=== PATIENT | female | born 1950 | race Caucasian/White ===

== ENCOUNTER 2017-12-17 20:12 | Emergency (ER) | payer OTHER ==
[~2017-12-17] VITALS: Ht 162.6 cm; Wt 76.2 kg
--- NOTE | 2017-12-17 20:45 | NUR ---
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
--- NOTE | 2017-12-17 21:15 | NUR ---
MELODY APPLIED PER MD REQUEST
[2017-12-17] MEDS ORDERED: HYDROCODONE/APAP 5/325MG 1 EACH TABLET PO ONE (22:00)
[2017-12-17] MEDS ORDERED: HYDROCODONE/APAP 5/325MG 1 EACH TABLET ONE (22:20)
--- NOTE | 2017-12-17 22:22 | NUR ---
CALLED PATIENTS DAUGHTER DANIELA @ [phone], SHE WOULD BE ABLE TO GEOLOGY FACULTY MEMBER HER MOTHER AROUND [phone].
--- NOTE | 2017-12-17 22:28 | NUR ---
C-COLAR REMOVED PER MD REQUEST AND PT MEDICATED FOR PAIN PER MD REQUEST
--- NOTE | 2017-12-18 01:30 | NUR ---
PT DAUGHTER WAS HERE TO SEASONAL CLERK PATIENT, PT WALKED OUT WITH DAUGHTER WITH A ATEADY GAIT, PT GIVEN ACI AND TOLD TO NOT DRIVE, PT VERBALIZED UNDERSTANDING
[2017-12-18 01:33] VITALS: BP 138/89
== END 2017-12-18 01:34 | disposition home or self-care (01) ==
LOC: ER 20:13
DX: S00.03XA Contusion of scalp, initial encounter (principal); K21.9 Gastro-esophageal reflux disease without esophagitis; R29.6 Repeated falls; F10.10 Alcohol abuse, uncomplicated; W01.0XXA Fall on same level from slipping, tripping and stumbling without subsequent striking against object, initial encounter; Y93.89 Activity, other specified; Y92.002 Bathroom of unspecified non-institutional (private) residence as the place of occurrence of the external cause; Y99.8 Other external cause status
CPT/HCPCS: 70450-TC; 72125-TC; A4606; A6402; L0172; Z7610

== ENCOUNTER 2020-03-26 16:57 | Emergency (ER) | payer OTHER ==
[~2020-03-26] VITALS: Ht 170.2 cm; Wt 63.5 kg
[2020-03-26] MEDS ORDERED: LIDOCAINE 1%-EPI 1:100,000 20 ML VIAL ONE (17:34)
--- NOTE | 2020-03-26 18:00 | NUR ---
patient came in to the er c/o facial lac s/p glf. On room air, breathing evenly and unlabored. connected to the monitor and pulse ox. kept comfortable, will continue to monitor accordingly.
--- NOTE | 2020-03-26 19:05 | NUR ---
REPORT REC'D FROM SYLVIA RUCKER FOR ANGELA.
--- NOTE | 2020-03-26 19:30 | NUR ---
C-COLLAR REMOVED PER DR REEDER.
--- NOTE | 2020-03-26 19:39 | NUR ---
CALLING RADIOLOGY RE: HAND XRAY. CLAUDIA IS ON HIS WAY.
--- NOTE | 2020-03-26 20:25 | NUR ---
Patient discharged to home in stable condition. Written and verbal after care instructions given. Patient verbalizes understanding of instruction. PT AMBULATED OUT WITH A STEADY GAIT. VSS
[2020-03-26 20:26] VITALS: BP 128/58
== END 2020-03-26 20:26 | disposition home or self-care (01) ==
LOC: ER 17:13
DX: S01.81XA Laceration without foreign body of other part of head, initial encounter (principal); S60.012A Contusion of left thumb without damage to nail, initial encounter; F32.9 Major depressive disorder, single episode, unspecified; F41.9 Anxiety disorder, unspecified; Z98.890 Other specified postprocedural states; W18.39XA Other fall on same level, initial encounter; Y93.89 Activity, other specified; Y92.89 Other specified places as the place of occurrence of the external cause; Y99.8 Other external cause status
CPT/HCPCS: 12013; 70450; 72125; 73130; 99285; A6403 ×2; J3490

== ENCOUNTER 2023-03-13 16:21 | Inpatient (IN) | payer OTHER ==
[~2023-03-13] VITALS: Ht 162.6 cm; Wt 68.9 kg
[~2023-03-13 16:21] MED LIST: CEPH250C PO; FLUO10CA26 PO; HYDR-3980 PO; IBUP-1957 PO; OXYC-128 PO
--- NOTE | 2023-03-13 16:25 | NUR ---
BIB FAMILY FROM HOME FOR NOTED R SIDED WEAKNESS AND SLURRED SPEECH LKW 2100.
--- NOTE | 2023-03-13 16:26 | NUR ---
CALLED [facility]
--- NOTE | 2023-03-13 16:30 | NUR ---
PT TAKEN TO CT VIA ONESIMO
--- NOTE | 2023-03-13 16:31 | NUR ---
PT TO CT VIA ACLS PROTOCALS.
[2023-03-13] MEDS ORDERED: IOHEXOL-350 100 ML VIAL IV ONE (16:32)
[2023-03-13] MEDS ORDERED: CT SWABBABLE VALVE TRANS SET 1 EA INFUS.SET MC ONE (16:32)
[2023-03-13] MEDS ORDERED: IV NS 0.9% 250 ML IV ONE (16:32)
--- NOTE | 2023-03-13 16:32 | NUR ---
CALLED [facility] [phone] KRISTIAN SIMPSON.
--- NOTE | 2023-03-13 16:32 | NUR ---
FAIL SWALLOW EVAL. COUGHT AND SPIT WATER AFTER DRINKING
--- NOTE | 2023-03-13 16:35 | NUR ---
DAUGHTER DANIELA LEFT CONTACT # [phone], DR SAHA PMD CONTACT # [phone]
[2023-03-13 16:37] LABS: BASOPHILS # (AUTO) 0.1 K/uL (0.0-0.2); BASOPHILS % (AUTO) 0.5 % (0.0-2.0); EOSINOPHILS % (AUTO) 5.8 % (0.0-6.0); HEMATOCRIT 38 % (33-45); HEMOGLOBIN 12.6 g/dL (11.5-14.8); LYMPHOCYTES # (AUTO) 2.2 K/uL (0.8-4.8); LYMPHOCYTES % (AUTO) 22.3 % (20.0-44.0); MEAN CORPUSCULAR HGB CONC 33 g/dl (31.0-36.0); MEAN CORPUSCULAR VOLUME 98 fL (82-100); MONOCYTES # (AUTO) 0.6 K/uL (0.1-1.30); MONOCYTES % (AUTO) 5.9 % (2.0-12.0); NEUTROPHILS # (AUTO) 6.5 K/uL (1.8-8.9); NEUTROPHILS % (AUTO) 65.5 % (43.0-81.0); PLATELET COUNT (AUTO) 328 K/uL (150-450); RED BLOOD CELL COUNT(AUTO) 3.91 MIL/uL (4.0-5.2); WHITE BLOOD COUNT (AUTO) 9.9 K/uL (4.3-11.0)
[2023-03-13 16:42] LABS: CALCIUM, SERUM 9.8 mg/dL (8.5-10.1); CARBON DIOXIDE 25 mmol/L (21-32); CHLORIDE 107 mmol/L (98-107); CREATININE 0.7 mg/dL (0.6-1.3); GLUCOSE 101 mg/dL (74-106); POTASSIUM 3.4 mmol/L (3.5-5.1); SODIUM SERUM 142 mmol/L (136-145); UREA NITROGEN, BLOOD 17 mg/dL (7-18)
--- NOTE | 2023-03-13 16:49 | NUR ---
DR. HARDY SPEAKING WITH DR. GUILLEN.
--- NOTE | 2023-03-13 17:03 | NUR ---
AWAITING FOR TELE NEURO. MONITOR AT BEDSIDE
--- NOTE | 2023-03-13 17:22 | NUR ---
FF. UP WITH [facility]. THEY SAID TEREZA VALENCIA WILL BE THE ONE TO EVALUATE THE PATIENT. TELE MONITOR STILL AT THE BEDSIDE WAITING FOR THE CALL.
--- NOTE | 2023-03-13 17:39 | NUR ---
CALLED [facility] [phone] ASKING MD TO BEAM AND DO EVAL.
--- NOTE | 2023-03-13 17:49 | NUR ---
TELE NEURO SPOKE AND EVALUATE THE PATIENT.
--- NOTE | 2023-03-13 17:54 | NUR ---
DR. ROCKWELL SPEAKING WITH DR. GUILLEN.
[2023-03-13] MEDS ORDERED: ASPIRIN 325 MG TABLET PO ONE (18:00)
[2023-03-13] MEDS ORDERED: LORAZEPAM INJ 2 MG/ML VIAL IM ONE (18:00)
--- NOTE | 2023-03-13 18:04 | NUR ---
URINE COLLECTED SENT TO LAB
[2023-03-13] MEDS ORDERED: ASPIRIN 300 MG/SUPP.RECT RC ONE ×2 (18:30→18:52)
--- NOTE | 2023-03-13 19:13 | NUR ---
DANIELA SANTILLAN " DAUGHTER " [phone]. FOR UPDATE
--- NOTE | 2023-03-13 19:16 | NUR ---
JERAD CM [phone].
--- NOTE | 2023-03-13 19:20 | NUR ---
VERBAL CLINICALS GIVEN TO [facility]
--- NOTE | 2023-03-13 19:30 | NUR ---
COVID SWAB COLLECTED, GIVEN TO ONCOLOGY COORDINATOR
--- NOTE | 2023-03-13 19:52 | NUR ---
MESSAGE FROM MOBILITY ARCHITECT: PATIENT TO BE TRANSFERRED TO [facility].
--- NOTE | 2023-03-13 22:00 | NUR ---
RECEIVED A CALL FROM CM. THEY ARE STILL TRYING TO LOOK FOR ACLS TRANSPORT FOR PT. THEY WILL CALL US BACK SOON THAT THEY CAN ARRANGE TRANSPORT FOR ETA.
--- NOTE | 2023-03-14 01:30 | NUR ---
RECEIVED A CALL FROM [facility]. THEY CANNOT FIND TRANSPO FOR PT. THEY DECIDED TO GIVE US AUTHORIZATION TO ADMIT PT AT [facility].
[2023-03-14] MEDS ORDERED: ESCI10TA PO (03:29)
[2023-03-14] MEDS ORDERED: TOPI25TA49 PO (03:29)
--- NOTE | 2023-03-14 03:48 | NUR ---
MRSA SWAB COLLECTED AND SENT TO LAB. PATIENT'S BELONGINGS LIST DONE.
--- NOTE | 2023-03-14 04:01 | NUR ---
REPORT GIVEN TO SYLVIA DE SOUZA
[2023-03-14 04:30] VITALS: BP 126/87
--- NOTE | 2023-03-14 04:30 | NUR ---
PLUMBING ASSEMBLER INSTALLERSENIOR TECHNICAL MANAGER NOTE PATIENT CAME TO THE FLOOR ON A GURNEY FROM ER. UPON ADMISSION, VITAL SIGNS WERE TAKEN THE FOLLOWING: BP IS 126/87; HR IS 65; RR IS 18; TEMP IS 97.7 ORALLY; AND O2 SAT IS 98% ON RA. PT IS ON RA, TOLERATED WELL; NO S/S OF DISTRESS. PT IS ALERT AND ORIENTED, AO X 3 BUT FORGETFUL. PT HAS IV ACCESS AT HER R AC, #20G, SL. FLUSHED WELL WITH 10 CC OF NS. IV SITE IS PATENT AND INTACT. PT IS ON EXTERNAL SILVERWARE BUFFING MACHINE OPERATOR, ON THE MONITOR, HER HEART RHYTHM IS SR WITH HR AT 60S. SWALLOW EVALUATION IS DONE. PT PASSED THE TEST. SHE IS ABLE TO EAT AND DRINK WITHOUT ASPIRATION. SAFETY MEASURES ARE IN PLACED: BED IN LOWEST AND LOCKED POSITION; SIDE RAILS UP X 2; BED ALARM IS SET; CALL LIGHT AND TABLE ARE WITHIN EASY REACH. WILL CONTINUE MONITORING THE PT AND PROVIDE THE CARE PT NEEDS.
--- NOTE | 2023-03-14 04:30 | NUR ---
TRANSFERRED TO ROOM VIA ACLS PROTOCOL
[2023-03-14] MEDS ORDERED: ACETAMINOPHEN 325 MG TABLET PO PRN (05:00)
[2023-03-14] MEDS ORDERED: ZOLPIDEM TARTRATE 5 MG TABLET PO PRN (05:00)
--- NOTE | 2023-03-14 05:00 | NUR ---
VICE PRESIDENT QUALITY NOTE PT ASKED ME TO CALL HER DAUGHTER, DANIELA. GET HER NUMBER FROM PT'S CHART, , THE PHONE CAN'T GO THROUGH. ASKED THE PT AND PT GAVE HER OWN CELLPHONE NUMBER: [phone] AND CALLED HER PHONE (PT STATED HER DAUGHTER TOOK HER PHONE HOME). NOBODY ANSWERS THE PHONE WELL. WILL ENDORSE NEXT SHIFT NURSE TO FOLLOW UP.
[2023-03-14 05:55] LABS: BASOPHILS # (AUTO) 0.1 K/uL (0.0-0.2); BASOPHILS % (AUTO) 0.6 % (0.0-2.0); EOSINOPHILS % (AUTO) 8.5 % (0.0-6.0); HEMATOCRIT 38 % (33-45); HEMOGLOBIN 12.2 g/dL (11.5-14.8); LYMPHOCYTES # (AUTO) 2.8 K/uL (0.8-4.8); MEAN CORPUSCULAR HGB CONC 32 g/dl (31.0-36.0); MEAN CORPUSCULAR VOLUME 99 fL (82-100); MONOCYTES # (AUTO) 0.7 K/uL (0.1-1.30); MONOCYTES % (AUTO) 7.4 % (2.0-12.0); NEUTROPHILS # (AUTO) 4.7 K/uL (1.8-8.9); NEUTROPHILS % (AUTO) 52.5 % (43.0-81.0); PLATELET COUNT (AUTO) 322 K/uL (150-450); RED BLOOD CELL COUNT(AUTO) 3.79 MIL/uL (4.0-5.2)
[2023-03-14 06:19] LABS: CALCIUM, SERUM 10.1 mg/dL (8.5-10.1); CREATININE 0.6 mg/dL (0.6-1.3); POTASSIUM 3.3 mmol/L (3.5-5.1)
[2023-03-14 06:22] LABS: THYROID STIMULATING HORMONE 1.326 uIU/mL (0.358-3.74)
[2023-03-14 07:00] VITALS: BP 144/93
[2023-03-14] MEDS ORDERED: POTASSIUM CHLORIDE 20 MEQ TAB.PRT.SR PO ONE (07:00)
--- NOTE | 2023-03-14 07:20 | NUR ---
MANAGER EMERGENCY DEPARTMENT CLOSING NOTE RECEIVED PATIENT IN BED, A/O X 3 FORGETFUL AT TIMES. PT HAS SLURRED SPEECH, ON RA, TOLERATED WELL, NO S/S OF DISTRESS OR SOB. PT HAS IV ACCESS AT HER RAC, #20G SL. PT IS ON EXTERNAL SALES ORDER COORDINATOR WITH READING OF SR WITH HR AT 60S. RIGHT SIDED WEAKNESS NOTED. SAFETY MEASURES ARE IN PLACE: BED IN LOWEST AND LOCKED POSITION; SIDE RAILS UP X 2; BED ALARM IS SET; CALL LIGHT AND TABLE ARE WITHIN EASY REACH. WILL CONTINUE TO MONITOR PATIENT THE ENTIRE SHIFT. Addendum: 03/14/23 at 0800 by ZOFIA LAKE RN MANAGER EMERGENCY DEPARTMENT OPENING NOTES
--- NOTE | 2023-03-14 07:34 | NUR ---
MARKETING PROJECT COORDINATOR CLOSING NOTE PATIENT IS RESTING IN BED. SHE IS ALERT AND ORIENTED, AO X 3 BUT FORGETFUL. PT IS SLURRED SPEECH UPON ADMISSION. PT IS ON RA, TOLERATED WELL. NO S/S OF DISTRESS OR SOB. PT HAS IV ACCESS AT HER R AC, #20G, SL. FLUSHED WELL WITH 10 CC OF NS. IV SITE IS PATENT AND INTACT. PT IS ON EXTERNAL CHILD GUIDANCE COUNSELOR, ON THE MONITOR, HER HEART RHYTHM IS SR WITH HR AT 60S. SWALLOW EVALUATION IS DONE. PT PASSED THE TEST. SHE IS ABLE TO EAT AND DRINK WITHOUT ASPIRATION. SAFETY MEASURES ARE IN PLACED: BED IN LOWEST AND LOCKED POSITION; SIDE RAILS UP X 2; BED ALARM IS SET; CALL LIGHT AND TABLE ARE WITHIN EASY REACH. ENDORSED NEXT SHIFT NURSE FOR CONTINUING PT CARE.
[2023-03-14 08:00] VITALS: BP 144/93
[2023-03-14] MEDS: CLOPIDOGREL BISULFATE 75 MG TABLET PO SCH (08:40)
[2023-03-14] MEDS: TOPIRAMATE 25 MG TABLET PO SCH (08:40)
[2023-03-14] MEDS: ASPIRIN 81 MG TAB.CHEW PO SCH (08:40)
[2023-03-14] MEDS: ESCITALOPRAM OXALATE (10 MG) 10 MG TABLET PO SCH (08:40)
[2023-03-14 12:00] VITALS: BP 131/83
[2023-03-14] MEDS ORDERED: GADOTERATE MEGLUMINE 10 MMOL/20 ML VIAL IV ONE (12:13)
--- NOTE | 2023-03-14 13:00 | NUR ---
RN NOTE DANIELA (DAUGHTER) CALLED. INFORMED OF PROCEDURES DONE. DAUGHTER'S NUMBER ([phone]) ATTACHED TO CHART. WILL CONTINUE TO MONITOR PATIENT
--- NOTE | 2023-03-14 15:17 | NUR ---
RN NOTE MRI CALLED FOR RESULT OF PATIENT. RELAYED TO MD AND LABORER STARCH FACTORY.WILL CONTINUE TO MONITOR THE PATIENT
[2023-03-14 16:00] VITALS: BP 131/79
--- NOTE | 2023-03-14 18:49 | NUR ---
TRANSFER IRON OPERATOR CLOSING NOTE PATIENT IN BED, A/O X 3, FORGETFUL AT TIMES. ON RA, TOLERATED WELL, NO S/S OF DISTRESS OR SOB. PT HAS IV ACCESS AT HER RFA #22G SL, INTACT, PATENT AND FLUSHING WELL. PT IS ON EXTERNAL COMMUNICATION TECHNICIAN WITH READING OF SR WITH HR AT 62. RIGHT SIDED WEAKNESS OF THE ARM NOTED. FAMILY INFORMED AND UPDATED OF PATIENT'S CONDITION. ALL NEEDS ATTENDED AND ANTICIPATED. SAFETY MEASURES ARE IN PLACE: BED IN LOWEST AND LOCKED POSITION; SIDE RAILS UP X 2; BED ALARM IS SET; CALL LIGHT AND TABLE ARE WITHIN EASY REACH. WILL ENDORSE TO HYDROMETEOROLOGICAL TECHNICIAN NURSE.
--- NOTE | 2023-03-14 19:30 | NUR ---
ANGULAR JS DEVELOPER OPENING NOTE RECEIVED PATIENT FROM AM NURSE; PATIENT RESTING IN BED, A/O X 3, WITH PERIODS OF FORGETFULNESS; ABLE TO MAKE NEEDS KNOWN; NOTED WITH RIGHT ARM WEAKNESS; STABLE ON ROOM AIR, BREATHING EVENLY AND NO S/S OF DISTRESS NOTED; WITH IV ACCESS AT LFA G# 22 SALINE LOCK; HOOKED ON TELE MONITORING; ENCOURAGED VERBALIZATION OF NEEDS; SAFETY MEASURES IMPLEMENTED, BED LOCKED IN LOWEST POSITION, SIDE RAILS UP X 2, CALL LIGHT AND TABLE WITHIN REACH; WILL CONTINUE TO MONITOR THROUGHOUT SHIFT
[2023-03-14 20:00] VITALS: BP 142/68
[2023-03-14] MEDS: ATORVASTATIN 40 MG TABLET PO SCH (21:27)
[2023-03-15] VITALS: BP_SYST 133; BP_SYST 142; BP_DIAS 68; BP_DIAS 91
[2023-03-15 04:00] VITALS: BP 125/55
--- NOTE | 2023-03-15 06:48 | NUR ---
TALCER CLOSING NOTE PATIENT ASLEEP IN BED, A/O X 3, WITH PERIODS OF FORGETFULNESS; ABLE TO MAKE NEEDS KNOWN; NOTED WITH RIGHT ARM WEAKNESS; STABLE ON ROOM AIR, BREATHING EVENLY AND NO S/S OF DISTRESS NOTED; WITH IV ACCESS AT LFA G# 22 SALINE LOCK, INTACT AND PATENT; HOOKED ON TELE MONITORING CURRENTLY READING SINUS RHYTHM 70S BPM; WITH PUREWICK IN PLACE; ADMINISTERED MEDICATIONS PRESCRIBED; PATIENT'S NEEDS ATTENDED; KEPT CLEAN AND DRY; SAFETY MEASURES IMPLEMENTED, BED LOCKED IN LOWEST POSITION, SIDE RAILS UP X 2, CALL LIGHT AND TABLE WITHIN REACH; WILL ENDORSE TO AM NURSE FOR ANGELA.
--- NOTE | 2023-03-15 07:25 | NUR ---
HEALTH SERVICES RN OPENING NOTE RECEIVED PATIENT IN BED, AA/O X 3, WITH PERIODS OF FORGETFULNESS; ABLE TO MAKE NEEDS KNOWN; NOTED WITH RIGHT ARM WEAKNESS; STABLE ON ROOM AIR, BREATHING EVENLY AND NO S/S OF DISTRESS NOTED, SATURATING AT 98%, WITH IV ACCESS AT LFA G# 22 SALINE LOCK, INTACT AND PATENT AND FLUSHING WELL, ON BROWNING PROCESSOR WITH A CURRENT READING OF SR WITH A HR OF 63 BPM, ENCOURAGED VERBALIZATION OF NEEDS, SAFETY MEASURES IMPLEMENTED, BED LOCKED IN LOWEST POSITION, SIDE RAILS UP X 2, CALL LIGHT AND TABLE WITHIN EASY REACH, WILL CONTINUE TO MONITOR THROUGHOUT SHIFT
[2023-03-15 08:00] VITALS: BP 109/86
[2023-03-15] MEDS: ESCITALOPRAM OXALATE (10 MG) 10 MG TABLET PO SCH (08:30)
[2023-03-15] MEDS: TOPIRAMATE 25 MG TABLET PO SCH (08:30)
[2023-03-15] MEDS: ASPIRIN 81 MG TAB.CHEW PO SCH (08:30)
[2023-03-15] MEDS: CLOPIDOGREL BISULFATE 75 MG TABLET PO SCH (08:30)
[2023-03-15 09:04] LABS: CREATININE 0.6 mg/dL (0.6-1.3); POTASSIUM 3.7 mmol/L (3.5-5.1)
[2023-03-15] MEDS ORDERED: ATOR40TA PO (09:04)
[2023-03-15] MEDS ORDERED: ASPI-1169 PO (09:04)
[2023-03-15] MEDS ORDERED: CLOP75TA15 PO (09:04)
[2023-03-15 09:13] LABS: CALCIUM, SERUM 10.1 mg/dL (8.5-10.1)
[2023-03-15 10:17] LABS: BILIRUBIN,DIRECT 0.1 mg/dL (0.0-0.2); BILIRUBIN,TOTAL 0.5 mg/dL (0.2-1.0)
[2023-03-15 10:18] LABS: ALBUMIN 3.7 g/dL (3.4-5.0)
[2023-03-15 12:00] VITALS: BP 130/78
--- NOTE | 2023-03-15 12:27 | NUR ---
RN NOTE PATIENT HAS ACUTE MARKEDLY DISPLACED DISTAL CLAVICULAR FRACTURE. DR. MCCANN ORDERED AN ORTHO CONSULT.
[2023-03-15 16:00] VITALS: BP 111/79
--- NOTE | 2023-03-15 18:42 | NUR ---
ASSOCIATE PROFESSOR OF CHEMISTRY CLOSING NOTE RECEIVED PATIENT IN BED, AA/O X 3, WITH PERIODS OF FORGETFULNESS; ABLE TO MAKE NEEDS KNOWN; NOTED WITH RIGHT ARM WEAKNESS; STABLE ON ROOM AIR, BREATHING EVENLY AND NO S/S OF DISTRESS NOTED, SATURATING AT 98%, WITH IV ACCESS AT LFA G# 22 SALINE LOCK, INTACT AND PATENT AND FLUSHING WELL, ON DRUM HANDLER WITH A CURRENT READING OF SR WITH A HR OF 63 BPM, ENCOURAGED VERBALIZATION OF NEEDS, SAFETY MEASURES IN PLACE AND MAINTAINED AT ALL TIMES, BED LOCKED IN LOWEST POSITION, SIDE RAILS UP X 2, CALL LIGHT AND TABLE WITHIN EASY REACH, SCHEDULED MEDICATIONS ADMINISTERED, PATIENT WAS TURNED AND REPOSITIONED PER PROTOCOL, ALL NEEDS ATTENDED AND ANTICIPATED, WILL ENDORSE TO BANQUET SERVER ON CALL NURSE. Addendum: 03/15/23 at 1843 by ROCK WALKER BOATENG RN ASSOCIATE PROFESSOR OF CHEMISTRY CLOSING NOTE RECEIVED PATIENT IN BED, AA/O X 3, WITH PERIODS OF FORGETFULNESS; ABLE TO MAKE NEEDS KNOWN; NOTED WITH RIGHT ARM WEAKNESS; STABLE ON ROOM AIR, BREATHING EVENLY AND NO S/S OF DISTRESS NOTED, SATURATING AT 98%, WITH IV ACCESS AT LFA G# 22 SALINE LOCK, INTACT AND PATENT AND FLUSHING WELL, ON DRUM HANDLER WITH A CURRENT READING OF SR WITH A HR OF 93 BPM, ENCOURAGED VERBALIZATION OF NEEDS, SAFETY MEASURES IN PLACE AND MAINTAINED AT ALL TIMES, BED LOCKED IN LOWEST POSITION, SIDE RAILS UP X 2, CALL LIGHT AND TABLE WITHIN EASY REACH, SCHEDULED MEDICATIONS ADMINISTERED, PATIENT WAS TURNED AND REPOSITIONED PER PROTOCOL, ALL NEEDS ATTENDED AND ANTICIPATED, WILL ENDORSE TO BANQUET SERVER ON CALL NURSE.
--- NOTE | 2023-03-15 19:35 | NUR ---
TELERN SEEN ON THE WHEELCHAIR WHEELING HERSELF AROUND HALLWAYS ALERT ORIENTED X3. HFR, RIGHT SIDED WEAKNESS. SAFETY PRECAUTIONS EMPHASIZED, WELL UNDERSTOOD. NO NEEDS FOR NOW STATED CAN WHEEL HERSELF AROUND WITHOUT HELP. OFFERED ASSISTANCE STATED WILL CALL STAFF IF NEEDED. PENDING DISCHARGE, AWAITING FOR SNF PLACEMENT.
[2023-03-15 20:00] VITALS: BP 102/63
--- NOTE | 2023-03-15 20:11 | NUR ---
TELERN RECEIVED CALL FROM [facility], UPDATES REGARDING ORTHO CONSULTS. WILL CALL BACK ONCE PLACEMENT ARRANGED.
[2023-03-15] MEDS: ATORVASTATIN 40 MG TABLET PO SCH (21:36)
[2023-03-16] VITALS: BP 174/81
--- NOTE | 2023-03-16 00:45 | NUR ---
TELERN FOUND BY ANOTHER RN SITTING ON THE FLOOR ON LEFT SIDE FOOT BOARD OF THE BED. PATIENT STATED DID NOT HIT HER HEAD OR ANY PARTS OF HER BODY ON THE FLOOR. SHE STATED DECIDED TO SLIDE DOWN FROM WHEELCHAIR TO FLOOR THEN CRAWL GOING BACK TO BED. SUSTAINED MINOR WOUNDS OF HER LEFT FRANCIS. WAS ASSISTED BY RN AND REHABILITATION TECHNICIAN BACK TO BED. WOUNDS CLEANSED WITH NS PAT DRY AND MEPILEX APPLIED. PATIENT ADMITTED NOT CALLING STAFF FOR ANY ASSISTANCE GOING TO RESTROOM AND DECIDED TO GO BY HERSELF. PATIENT ON/OFF CONFUSION. STATED WILL CALL STAFF NEXT TIME SHE WILL NEED HELP. CALL LIGHT USE REVIEWED WITH PATIENT AND WELL UNDERSTOOD. SIDE RAILS UP X3, BED ALARM ON. REMINDED NOT TO PUT RAILS DOWN AND TOUCH BED ALARM. NEEDS CONSTANT MONITORING, WILL NEED TO BE MOVE CLOSER OF STATION . TO CONTINUE.
--- NOTE | 2023-03-16 03:01 | NUR ---
TELERN MOVED TO ROOM 311-1 WITH ALL PERSONAL BELONGINGS VIA BED. RE-ORIENTED TO ROOM FACILITIES.
[2023-03-16 04:00] VITALS: BP 145/92
--- NOTE | 2023-03-16 06:42 | NUR ---
TELERN HAS BEEN CALLING FOR ASSISTANCE TO BSC. FREQ VOIDING, SAFETY AWARENESS REMINDED TO PATIENT. CLOSELY WATCHED.
[2023-03-16 07:00] VITALS: BP 117/71
--- NOTE | 2023-03-16 07:18 | NUR ---
FURNACE LOADER OPENING NOTE RECEIVED PATIENT IN BED, AA/O X 3, WITH PERIODS OF FORGETFULNESS; ABLE TO MAKE NEEDS KNOWN; NOTED WITH RIGHT ARM WEAKNESS; STABLE ON ROOM AIR, BREATHING EVENLY AND NO S/S OF DISTRESS NOTED, SATURATING AT 98%, WITH IV ACCESS AT LFA G# 22 SALINE LOCK, INTACT AND PATENT AND FLUSHING WELL, ON INSOLE CHANNELER WITH A CURRENT READING OF SR WITH A HR OF 82 BPM, ENCOURAGED VERBALIZATION OF NEEDS, SAFETY MEASURES IMPLEMENTED, BED LOCKED IN LOWEST POSITION, SIDE RAILS UP X 2, CALL LIGHT AND TABLE WITHIN EASY REACH, WILL CONTINUE TO MONITOR THROUGHOUT SHIFT
--- NOTE | 2023-03-16 07:43 | NUR ---
TELERN SPOKE TO CÉSAR DAUGHTER OF PATIENT VIA PHONE. INFORMED ABOUT FALL INCIDENT.
[2023-03-16] MEDS: CLOPIDOGREL BISULFATE 75 MG TABLET PO SCH (08:26)
[2023-03-16] MEDS: ESCITALOPRAM OXALATE (10 MG) 10 MG TABLET PO SCH (08:26)
[2023-03-16] MEDS: ASPIRIN 81 MG TAB.CHEW PO SCH (08:26)
[2023-03-16] MEDS: TOPIRAMATE 25 MG TABLET PO SCH (08:26)
--- NOTE | 2023-03-16 08:46 | NUR ---
RN NOTES PT SEEN BY DR MCCANN AND RECEIVED VERBAL ORDER FOR STAT X-RAY OF PELVIS TO R/O FRACTURE.
--- NOTE | 2023-03-16 09:17 | NUR ---
WOUND CARE CONSULT: PT PRESENTS WITH ABRASIONS TO LEFT LOWER LEG, PRESENT ON ADMISSION. RECOMMENDATIONS MADE FOR SKIN PROTECTION AND WOUND CARE. DISCUSSED WITH NURSING STAFF. MD IN AGREEMENT WITH PLAN OF CARE.
[2023-03-16 12:00] VITALS: BP 129/86
--- NOTE | 2023-03-16 15:31 | NUR ---
GUEST RELATIONS EXECUTIVE NOTE PATIENT DISCHARGE IN STABLE MEDICAL CONDITION, A/OX1, V/S TAKEN, STABLE AND RECORDED, REMOVED IV ACCESS, NO BLEEDING NOTED, APPLIED DD, NAME ARM BAND REMOVED, EXTERNAL PSYCHOSOCIAL REHABILITATION COUNSELOR REMOVED AND RETURNED TO TELE DESK, SKIN ASSESSMENT DONE AND PICTURES TAKEN, ALL BELONGING CHECKED, HEALTH TEACHING AND DISCHARGE INSTRUCTION GIVEN AT THE SNF NURSE CHUCK, RN AT [facility] AND VERBALIZED UNDERSTANDING, INSTRUCTED RN AT THE FACILITY TO MAKE A APPOINTMENT WITH THE PCP IN 1 WEEK, DISCUSSED PRESCRIPTION WITH THE FACILITY NURSE, INSTRUCTED TO CALL 911 OR GO TO THE NEAREST ER FOR ANY EMERGENCY, PATIENT LEFT UNIT VIA GURNEY W/ NO DISTRESS, ACCOMPANIED BY 2 EMT AT 1500, AND CHARGE NURSE AWARE.
== END 2023-03-16 13:00 | DRG 66 ==
LOC: ER 16:22 → TELE 03-14 03:40
PROVIDERS: ADMIT Internal Medicine; ATTEND Internal Medicine
DX: I63.233 Cerebral infarction due to unspecified occlusion or stenosis of bilateral carotid arteries (principal); F32.9 Major depressive disorder, single episode, unspecified; R29.810 Facial weakness; I10 Essential (primary) hypertension; G89.29 Other chronic pain; G83.21 Monoplegia of upper limb affecting right dominant side; R47.81 Slurred speech; R29.705 NIHSS score 5; R47.1 Dysarthria and anarthria; Z20.822 Contact with and (suspected) exposure to COVID-19; M24.411 Recurrent dislocation, right shoulder
CPT/HCPCS: 36415; 70450-TC; 70496-TC; 70498-TC; 70553-TC; 71045-TC; 72170-TC; 73030-TC; 73200-TC; 80048-TC; 80061-TC; 80076-TC; 82962-TC; 84443-TC; 84484-TC; 85025-TC; 85730-TC; 87081-TC; 92526; 92611-TC; 93307-TC; 97112-TC; 97116-TC; 97530-TC; A4565; A9575; C9803; G0378; G0480; J7050; Q9967